=== PATIENT | male | born 1990 | race Caucasian/White ===

== ENCOUNTER → 2021-05-19 | Outpatient (CLI) | payer OTHER | LOC: M.LAB 05-08 10:42 → M.MRI 05-15 07:30 → M.LAB 06:30 | PROVIDERS: ATTEND Psychiatry & Neurology Neuromuscular Medicine | DX: G95.89 Other specified diseases of spinal cord (principal); G93.89 Other specified disorders of brain; R27.0 Ataxia, unspecified; R29.898 Other symptoms and signs involving the musculoskeletal system; R29.2 Abnormal reflex ==

== ENCOUNTER → 2021-06-02 | Outpatient (CLI) | payer OTHER ==
[2021-06-02 09:32] LABS: ABSOLUTE EOSINOPHILS 0.1 thou/uL (0.0-0.7); ABSOLUTE LYMPHOCYTES 1.7 thou/uL (0.8-5.3); ABSOLUTE MONOCYTES 0.4 thou/uL (0.0-1.2); ABSOLUTE NEUTROPHILS 3.7 thou/uL (1.6-8.1); BASOPHILS 0.6 %; EOSINOPHILS 1.1 %; HEMATOCRIT 44.5 % (42.0-52.0); HEMOGLOBIN 15.2 gm/dL (14.0-18.0); MCH 28.6 pg (26.0-34.0); MCHC 34.2 g/dL (28.0-37.0); MCV 83.7 fL (80.0-100.0); MONOCYTES 6.6 %; MPV 7.9 fl. (7.2-11.1); NUCLEATED RBCS 0 /100WBC; PLATELET COUNT* 248 thou/uL (150-400); POLYS 62.7 %; RBC 5.32 mil/uL (4.50-6.00); WBC 5.9 thou/uL (4.0-11.0)
[2021-06-02 09:46] LABS: ALBUMIN 4.3 g/dL (3.4-5.0); CALCIUM 8.9 mg/dL (8.5-10.1); POTASSIUM 4.2 mmol/L (3.5-5.1); TOTAL BILIRUBIN 0.9 mg/dL (<0.1-1.0); TOTAL PROTEIN 8.1 g/dL (6.4-8.2)
[2021-06-02 09:52] LABS: APTT 26.2 Seconds (25.0-31.3); PROTIME 10.4 Seconds (9.20-11.50)
[2021-06-02 10:35] LABS: ESR (SEDRATE) 8 mm/hr (0-15)
[2021-06-02 11:50] VITALS: BP 108/63
[2021-06-02 12:05] VITALS: BP 104/56
[2021-06-02 12:12] LABS: CSF CLARITY CLEAR; CSF COLOR COLORLESS; VOLUME 20 ml
[2021-06-02 12:19] LABS: CSF GLUCOSE 58 mg/dl (40-70); CSF PROTEIN 71.5 mg/dl (15-45)
[2021-06-02 12:27] VITALS: BP 104/57
[2021-06-02 12:42] VITALS: BP 99/56
[2021-06-02 14:31] LABS: CSF POLYS 4 % (0-6)
[2021-06-02 14:32] LABS: CSF LYMPHOCYTES 68 % (40-80); CSF OTHER 28
[2021-06-02 14:36] LABS: CSF WBC 10 /mm3 (0-10)
[2021-06-02 14:38] LABS: CSF RBC 0 /mm3
[2021-06-02 21:05] LABS: IgA 290 mg/dL (90-386); IgG 1142 mg/dL (603-1613); IgM 111 mg/dL (20-172)
[2021-06-04 12:07] LABS: ANTI-SSA <0.2 AI (0.0-0.9)
[2021-06-04 19:07] LABS: ANA INTERPRETATION Negative (())
[2021-06-05 14:07] LABS: CSF ALBUMIN 31 mg/dL (10-45)
[2021-06-05 18:06] LABS: HEPATITIS B SURFACE AG Negative (Negative)
[2021-06-06 02:06] LABS: HIV-1/HIV-2 ANTIBODY Non Reactive (Non Reactive)
[2021-06-11 12:07] LABS: CSF IGG INDEX 2.3 (0.0-0.7); CSF IgG 15.8 mg/dL (0.0-10.3); CSF/SERUM ALBUMIN INDEX 6 (0-8)
== END ==
LOC: M.LAB 05-27 12:23 → M.RAD 10:00 → M.LAB 06-09 09:00 → M.RAD 06-09 10:00
PROVIDERS: ATTEND Psychiatry & Neurology Neuromuscular Medicine
DX: R27.0 Ataxia, unspecified (principal); R29.898 Other symptoms and signs involving the musculoskeletal system; R29.2 Abnormal reflex